=== PATIENT | male | born 1950 | race American Indian/Alaskan Native ===

== ENCOUNTER 2018-08-26 10:11 | Inpatient (IN) | payer MEDICARE ==
[2018-08-26] MEDS ORDERED: DUONEB *Not for PRN Use IH ONE ×2 (11:17→11:19)
[2018-08-26 11:19] LABS: Basophils % (Auto) 0.4 % (0.0-1.8); Eosinophils # (Auto) 0.5 K/mm3 (0.0-0.4); Eosinophils % (Auto) 7.8 % (0.0-4.3); Hematocrit 46.8 % (35.5-45.6); Hemoglobin 15.5 gm/dl (11.8-15.2); Lymphocytes # (Auto) 1.1 K/mm3 (1.2-5.4); Lymphocytes % (Auto) 16.6 % (13.4-35.0); Mean Corpuscular HGB Conc 33 % (32-34); Mean Corpuscular Volume 96 fl (84-94); Monocytes # (Auto) 0.6 K/mm3 (0.0-0.8); Monocytes % (Auto) 9.6 % (0.0-7.3); Platelet Count 161 K/mm3 (140-440); Red Blood Count 4.88 M/mm3 (3.65-5.03); Red Cell Distribution Width 13.8 % (13.2-15.2)
[2018-08-26 11:26] LABS: INR 0.97 (0.87-1.13); Partial Thromboplastin Time 26.4 Sec. (24.2-36.6)
[2018-08-26 11:28] LABS: BUN/Creatinine Ratio 22; Blood Urea Nitrogen 13 mg/dL (9-20); Calcium 8.9 mg/dL (8.4-10.2); Hemolysis Index 12
--- NOTE | 2018-08-26 11:28 | XRay Report ---
FINAL REPORT EXAM: XR CHEST 1V AP HISTORY: Dyspnea COMPARISON: Chest radiograph performed on 08/06/2018 TECHNIQUE: Single frontal view of the chest FINDINGS: The cardiomediastinal silhouette is normal in appearance. The lungs are clear without focal consolidation. There is no pleural effusion or pneumothorax. There is no acute soft tissue or osseous abnormality. IMPRESSION: No acute cardiopulmonary disease.
[2018-08-26 11:30] LABS: Creatine Kinase MB 2.4 ng/mL (0.0-4.0)
[2018-08-26 11:33] LABS: Alanine Aminotransferase 22 units/L (7-56); Albumin 4.1 g/dL (3.9-5)
[2018-08-26 11:46] LABS: Bilirubin,Direct < 0.2 mg/dL (0-0.2)
--- NOTE | 2018-08-26 12:03 | Emergency Department Report ---
ED Shortness of Breath HPI - General Chief Complaint: Dyspnea/Respdistress Stated Complaint: HARD TO BREATHE Time Seen by Provider: 08/26/18 10:41 Source: patient Mode of arrival: Ambulatory Limitations: No Limitations - History of Present Illness Initial Comments: 68-year-old man who has had difficulty in breathing he states since June. Apparently per the previous record: 68-year-old male with a history of smoking and recent diagnosis of COPD presents to the hospital of complaints of wheezing and shortness of breath since last night. Patient used his inhaler with some relief but came in due to persistent wheezing and shortness of breath. Dyspnea on exertion reported. Patient has a dry cough without fever, pain, leg swelling, or calf tenderness. 3 weeks ago patient was admitted to [facility] for shortness of breath. He was diag nosed with COPD and discharged on steroids, antibiotics, and prednisone. Patient is waiting for his insurance to be activated with [employer] on August 08 to follow up with a PMD. No home oxygen use. Patient quit smoking after his discharge from the hospital 3 weeks ago. This is the patient's third visit here. He states that he does not know what's wrong with him to me. He states he does not understand why his problems or recurrent. He tells me that after he takes what appears to be a steroid Dosepak his symptoms tend to recur. He does not complain of cough. He does not complain of leg swelling or PND. He has no chest pain, fever or chills. He would appear to be in denial regarding the diagnosis of COPD now. He states he has been "referred to 3 physicians" including a community health coordinator to try to determine what is wrong with him. He is still smoking. He did not quantify exactly how much but he states that it is more of a weekly basis now. His pulse oximetry was found to be 90% in triage. He states that he does have dyspnea on exertion but also at rest. He does admit that he has been previously prescribed an inhaler but first in June. His symptoms recurred last night. Complaint: shortness of breath -: month(s) Known History Of: COPD Associated Symptoms: denies other symptoms - Related Data Previous Rx's Medication Instructions Recorded Last Taken Type ALBUTEROL Inhaler (OR & NICU) 2 puff IH QID PRN #1 inhalation 08/07/18 Unknown Rx [ProAir HFA Inhaler] Prednisone [predniSONE 10 mg 10 mg PO .TAPER #1 tab.ds.pk 08/07/18 Unknown Rx (6-Day Pack, 21 Tabs)] Allergies Allergy/AdvReac Type Severity Reaction Status Date / Time No Known Allergies Allergy Verified 06/16/18 02:13 ED Review of Systems ROS: Stated complaint: HARD TO BREATHE Other details as noted in HPI Constitutional: denies: chills, fever Eyes: denies: eye pain, eye discharge, vision change ENT: denies: ear pain, throat pain Respiratory: shortness of breath, SOB with exertion, SOB at rest. denies: cough, wheezing Cardiovascular: denies: chest pain, palpitations Endocrine: no symptoms reported Gastrointestinal: denies: abdominal pain, nausea, diarrhea Genitourinary: denies: urgency, dysuria Musculoskeletal: denies: back pain, joint swelling, arthralgia Skin: denies: rash, lesions Neurological: denies: headache, weakness, paresthesias Psychiatric: denies: anxiety, depression Hematological/Lymphatic: denies: easy bleeding, easy bruising ED Past Medical Hx - Past Medical History Previous Medical History?: No - Surgical History Past Surgical History?: No - Social History Smoking Status: Current Every Day Smoker Substance Use Type: None - Medications Home Medications: Home Medications Medication Instructions Recorded Confirmed Last Taken Type ALBUTEROL Inhaler (OR & NICU) 2 puff IH QID PRN #1 inhalation 08/07/18 Unknown Rx [ProAir HFA Inhaler] Prednisone [predniSONE 10 mg 10 mg PO .TAPER #1 tab.ds.pk 08/07/18 Unknown Rx (6-Day Pack, 21 Tabs)] ED Physical Exam - General Limitations: No Limitations General appearance: alert, in no apparent distress - Head Head exam: Present: atraumatic, normocephalic - Eye Eye exam: Present: normal appearance. Absent: scleral icterus - ENT ENT exam: Present: mucous membranes moist - Neck Neck exam: Present: normal inspection - Respiratory Respiratory exam: Present: decreased breath sounds. Absent: normal lung sounds bilaterally, respiratory distress, accessory muscle use - Cardiovascular Cardiovascular Exam: Present: regular rate, normal rhythm. Absent: systolic murmur, diastolic murmur, rubs, gallop - GI/Abdominal GI/Abdominal exam: Present: soft, normal bowel sounds. Absent: distended, tenderness, guarding, rebound, rigid - Rectal Rectal exam: Present: deferred - Extremities Exam Extremities exam: Present: normal inspection - Back Exam Back exam: Present: normal inspection - Neurological Exam Neurological exam: Present: alert, oriented X3, CN II-XII intact. Absent: motor sensory deficit - Psychiatric Psychiatric exam: Present: normal affect, normal mood - Skin Skin exam: Present: warm, dry, intact, normal color. Absent: rash ED Course Vital Signs 08/26/18 08/26/18 08/26/18 10:21 10:52 11:28 Temperature 98.3 F Pulse Rate 95 H 97 H Pulse Rate [ 72 Anterior Bilateral Throughout] Respiratory 22 Rate Respiratory 20 Rate [Anterior Bilateral Throughout] Blood Pressure 167/76 Blood Pressure 141/95 [Right] O2 Sat by Pulse 90 95 Oximetry 08/26/18 11:43 Temperature Pulse Rate Pulse Rate [ 72 Anterior Bilateral Throughout] Respiratory Rate Respiratory 20 Rate [Anterior Bilateral Throughout] Blood Pressure Blood Pressure [Right] O2 Sat by Pulse Oximetry - Reevaluation(s) Reevaluation #1: I am concerned that the patient is mildly acidotic with an elevated PCO2. This is consistent with acute hypercapnic respiratory failure. I suspect he probably has some chronic retention as well. He will be admitted to Dr. Hahn's service for further evaluation. I suspect he needs CPap at night. He would benefit fro m further evaluation/pulmonary consultation. Further care per Dr. Hahn. 08/26/18 13:18 08/26/18 13:21 ED Medical Decision Making - Lab Data Result diagrams: 08/26/18 10:46 08/26/18 10:46 Laboratory Results - last 24 hr 08/26/18 08/26/18 08/26/18 10:46 10:46 10:46 WBC 6.5 RBC 4.88 Hgb 15.5 H Hct 46.8 H MCV 96 H MCH 32 MCHC 33 RDW 13.8 Plt Count 161 Lymph % (Auto) 16.6 [place] % (Auto) 9.6 H Eos % (Auto) 7.8 H Baso % (Auto) 0.4 Lymph # 1.1 L [place] # 0.6 Eos # 0.5 H Baso # 0.0 Seg Neutrophils % 65.6 Seg Neutrophils # 4.3 PT 13.3 INR 0.97 APTT 26.4 D-Dimer 225.35 POC ABG pH POC ABG pCO2 POC ABG pO2 POC ABG HCO3 POC ABG Total CO2 POC ABG O2 Sat POC ABG Base Excess FiO2 Sodium Potassium Chloride Carbon Dioxide Anion Gap BUN Creatinine Estimated GFR BUN/Creatinine Ratio Glucose Lactic Acid Calcium Magnesium Total Bilirubin 0.50 Direct Bilirubin < 0.2 Indirect Bilirubin 0.3 AST 15 ALT 22 Alkaline Phosphatase 102 CK-MB (CK-2) 2.4 Troponin T < 0.010 NT-Pro-B Natriuret Pep 50.06 Total Protein 6.9 Albumin 4.1 Albumin/Globulin Ratio 1.5 08/26/18 08/26/18 08/26/18 10:46 10:46 11:31 WBC RBC Hgb Hct MCV MCH MCHC RDW Plt Count Lymph % (Auto) [place] % (Auto) Eos % (Auto) Baso % (Auto) Lymph # [place] # Eos # Baso # Seg Neutrophils % Seg Neutrophils # PT INR APTT D-Dimer POC ABG pH 7.356 POC ABG pCO2 51.1 H POC ABG pO2 68 L POC ABG HCO3 28.6 POC ABG Total CO2 30 POC ABG O2 Sat 92 POC ABG Base Excess 3 FiO2 21 Sodium 139 Potassium 4.7 Chloride 101.0 Carbon Dioxide 27 Anion Gap 16 BUN 13 Creatinine 0.6 L Estimated GFR > 60 BUN/Creatinine Ratio 22 Glucose 131 H Lactic Acid 1.10 Calcium 8.9 Magnesium 1.80 Total Bilirubin Direct Bilirubin Indirect Bilirubin AST ALT Alkaline Phosphatase CK-MB (CK-2) Troponin T NT-Pro-B Natriuret Pep Total Protein Albumin Albumin/Globulin Ratio - EKG Data -: EKG Interpreted by Id EKG shows normal: sinus rhythm Rate: normal - EKG Data Interpretation: no acute changes, nonspecific ST-T wave genesis, other (QS in V2 nondiagnostic. P pulmonale. No acute changes.) - Radiology Data Radiology results: report reviewed Chest x-ray no acute process. Critical care attestation.: If time is entered above; I have spent that time in minutes in the direct care of this critically ill patient, excluding procedure time. ED Disposition Clinical Impression: Acute hypercapnic respiratory failure, COPD with exacerbation Disposition: OP ADMIT IP TO THIS HOSP Is pt being admited?: Yes Does the pt Need Aspirin: Yes Condition: Stable Instructions: Chronic Obstructive Pulmonary Disease (ED) Referrals: PRIMARY CAREMD [Primary Care Provider] - 3-5 Days Time of Disposition: 13:23
[2018-08-26] MEDS ORDERED: SOLU-Medrol IV ONE (13:04)
[2018-08-26] MEDS ORDERED: ASPIRIN PO ONE (13:24)
--- NOTE | 2018-08-26 22:02 | History and Physical Report ---
History of Present Illness Date of examination: 08/26/18 Date of admission: 08/26/18 13:24 Chief complaint: Increasing shortness of breath for 2 days History of present illness: 58-year-old -[place] male with history of COPD comes in for shortness of breath of 2 days' duration. Cough productive of mucoid sputum. Patient was recently admitted to [facility] 3 weeks ago for COPD exacerbation. No fever or chills. No chest pain. Patient continues to smoke. Patient also has dyspnea on exertion. Patient's oxygen saturations were low in the triage area. No leg swelling Past Medical History COPD Surgical History Past Surgical History?: No Social History Smoking Status: Current Every Day Smoker Substance Use Type: None Family History Htn Medications Home Medications: Home Medications Medication Instructions Recorded Confirmed Last Taken Type ALBUTEROL Inhaler (OR & NICU) 2 puff IH QID PRN #1 inhalation 08/07/18 Unknown Rx [ProAir HFA Inhaler] Prednisone [predniSONE 10 mg 10 mg PO .TAPER #1 tab.ds.pk 08/07/18 Unknown Rx (6-Day Pack, 21 Tabs)] Review of Systems ROS: Stated complaint: HARD TO BREATHE Other details as noted in HPI Constitutional: denies: chills, fever Eyes: denies: eye pain, eye discharge, vision change ENT: denies: ear pain, throat pain Respiratory: shortness of breath, SOB with exertion, SOB at rest. denies: cough, wheezing Cardiovascular: denies: chest pain, palpitations Endocrine: no symptoms reported Gastrointestinal: denies: abdominal pain, nausea, diarrhea Genitourinary: denies: urgency, dysuria Musculoskeletal: denies: back pain, joint swelling, arthralgia Skin: denies: rash, lesions Neurological: denies: headache, weakness, paresthesias Psychiatric: denies: anxiety, depression Hematological/Lymphatic: denies: easy bleeding, easy bruising Medications and Allergies Allergies Allergy/AdvReac Type Severity Reaction Status Date / Time No Known Allergies Allergy Verified 06/16/18 02:13 Home Medications Medication Instructions Recorded Confirmed Last Taken Type ALBUTEROL Inhaler (OR & NICU) 2 puff IH QID PRN #1 inhalation 08/07/18 08/26/18 08/26/18 Rx [ProAir HFA Inhaler] Prednisone [predniSONE 10 mg 10 mg PO .TAPER #1 tab.ds.pk 08/07/18 08/26/18 08/12/18 Rx (6-Day Pack, 21 Tabs)] Exam - Constitutional Vitals: Temp Pulse Resp BP Pulse Ox 97.9 F 71 20 140/76 95 08/26/18 19:35 08/26/18 19:35 08/26/18 19:35 08/26/18 19:35 08/26/18 19:35 General appearance: Present: no acute distress, well-nourished - EENT Eyes: Present: PERRL ENT: hearing intact, clear oral mucosa - Neck Neck: Present: supple, normal ROM - Respiratory Respiratory effort: normal Respiratory: bilateral: diminished, rhonchi, wheezing - Cardiovascular Heart rate: 78 Rhythm: regular Heart Sounds: Present: S1 & S2. Absent: rub, click - Extremities Extremities: no ischemia, pulses intact, pulses symmetrical, No edema Peripheral Pulses: within normal limits - Abdominal General gastrointestinal: Present: soft, non-tender, non-distended, normal bowel sounds Male genitourinary: Present: normal - Integumentary Integumentary: Present: clear, warm, dry - Musculoskeletal Musculoskeletal: gait normal, strength equal bilaterally - Psychiatric Psychiatric: appropriate mood/affect, intact judgment & insight - Neurologic Neurologic: CNII-XII intact, moves all extremities - Allied Health Allied health notes reviewed: nursing, case management Results - Labs CBC & Chem 7: 08/26/18 10:46 08/26/18 10:46 Labs: Laboratory Last Values WBC 6.5 K/mm3 (4.5-11.0) 08/26/18 10:46 RBC 4.88 M/mm3 (3.65-5.03) 08/26/18 10:46 Hgb 15.5 gm/dl (11.8-15.2) H 08/26/18 10:46 Hct 46.8 % (35.5-45.6) H 08/26/18 10:46 MCV 96 fl (84-94) H 08/26/18 10:46 MCH 32 pg (28-32) 08/26/18 10:46 MCHC 33 % (32-34) 08/26/18 10:46 RDW 13.8 % (13.2-15.2) 08/26/18 10:46 Plt Count 161 K/mm3 (140-440) 08/26/18 10:46 Lymph % (Auto) 16.6 % (13.4-35.0) 08/26/18 10:46 [place] % (Auto) 9.6 % (0.0-7.3) H 08/26/18 10:46 Eos % (Auto) 7.8 % (0.0-4.3) H 08/26/18 10:46 Baso % (Auto) 0.4 % (0.0-1.8) 08/26/18 10:46 Lymph # 1.1 K/mm3 (1.2-5.4) L 08/26/18 10:46 [place] # 0.6 K/mm3 (0.0-0.8) 08/26/18 10:46 Eos # 0.5 K/mm3 (0.0-0.4) H 08/26/18 10:46 Baso # 0.0 K/mm3 (0.0-0.1) 08/26/18 10:46 Seg Neutrophils % 65.6 % (40.0-70.0) 08/26/18 10:46 Seg Neutrophils # 4.3 K/mm3 (1.8-7.7) 08/26/18 10:46 PT 13.3 Sec. (12.2-14.9) 08/26/18 10:46 INR 0.97 (0.87-1.13) 08/26/18 10:46 APTT 26.4 Sec. (24.2-36.6) 08/26/18 10:46 D-Dimer 225.35 ng/mlDDU (0-234) 08/26/18 10:46 POC ABG pH 7.356 (7.35-7.45) 08/26/18 11:31 POC ABG pCO2 51.1 (35-45) H 08/26/18 11:31 POC ABG pO2 68 (80-105) L 08/26/18 11:31 POC ABG HCO3 28.6 08/26/18 11:31 POC ABG Total CO2 30 08/26/18 11:31 POC ABG O2 Sat 92 08/26/18 11:31 POC ABG Base Excess 3 08/26/18 11:31 FiO2 21 % 08/26/18 11:31 Sodium 139 mmol/L (137-145) 08/26/18 10:46 Potassium 4.7 mmol/L (3.6-5.0) 08/26/18 10:46 Chloride 101.0 mmol/L (98-107) 08/26/18 10:46 Carbon Dioxide 27 mmol/L (22-30) 08/26/18 10:46 Anion Gap 16 mmol/L 08/26/18 10:46 BUN 13 mg/dL (9-20) 08/26/18 10:46 Creatinine 0.6 mg/dL (0.8-1.5) L 08/26/18 10:46 Estimated GFR > 60 ml/min 08/26/18 10:46 BUN/Creatinine Ratio 22 % 08/26/18 10:46 Glucose 131 mg/dL (75-100) H 08/26/18 10:46 Lactic Acid 1.10 mmol/L (0.7-2.0) 08/26/18 10:46 Calcium 8.9 mg/dL (8.4-10.2) 08/26/18 10:46 Magnesium 1.80 mg/dL (1.7-2.3) 08/26/18 10:46 Total Bilirubin 0.50 mg/dL (0.1-1.2) 08/26/18 10:46 Direct Bilirubin < 0.2 mg/dL (0-0.2) 08/26/18 10:46 Indirect Bilirubin 0.3 mg/dL 08/26/18 10:46 AST 15 units/L (5-40) 08/26/18 10:46 ALT 22 units/L (7-56) 08/26/18 10:46 Alkaline Phosphatase 102 units/L (35-129) 08/26/18 10:46 Total Creatine Kinase 101 units/L (55-170) 08/26/18 10:46 CK-MB (CK-2) 2.4 ng/mL (0.0-4.0) 08/26/18 10:46 CK-MB (CK-2) Rel Index 2.3 (0-4) 08/26/18 10:46 Troponin T < 0.010 ng/mL (0.00-0.029) 08/26/18 10:46 NT-Pro-B Natriuret Pep 50.06 pg/mL (0-900) 08/26/18 10:46 Total Protein 6.9 g/dL (6.3-8.2) 08/26/18 10:46 Albumin 4.1 g/dL (3.9-5) 08/26/18 10:46 Albumin/Globulin Ratio 1.5 % 08/26/18 10:46 - Imaging and Cardiology Imaging and Cardiology: CXR] IMPRESSION: No acute cardiopulmonary disease. Assessment and Plan Advance Directives: Yes (full code) VTE prophylaxis?: Chemical Plan of care discussed with patient/family: Yes - Patient Problems (1) Acute hypercapnic respiratory failure Current Visit: Yes Status: Acute Plan to address problem: Patient initiated on IV Levaquin and IV Solu-Medrol and duo nebs ABG--PCO2 is 51 and PO2 is 68 consistent with hypercapnic respiratory failure (2) COPD with exacerbation Current Visit: Yes Status: Acute Plan to address problem: Patient initiated on IV Solu-Medrol and duo nebs and IV Solu-Medrol (3) Nicotine dependence Current Visit: Yes Status: Chronic Qualifiers: Nicotine product type: cigarettes Plan to address problem: Patient initiated on NicoDerm patch (4) DVT prophylaxis Current Visit: Yes Status: Acute Plan to address problem: On Lovenox and GI prophylaxis
[2018-08-26] MEDS ORDERED: ZOFRAN IV PRN (22:31)
[2018-08-26] MEDS ORDERED: TYLENOL PO PRN (22:31)
[2018-08-26] MEDS ORDERED: PERCOCET 5/325 PO PRN (22:32)
[2018-08-26] MEDS ORDERED: DILAUDID IV PRN (22:32)
[2018-08-26] MEDS ORDERED: AMBIEN PO PRN (23:00)
[2018-08-26] MEDS ORDERED: NACL 0.9% 1000 ML 1,000 ML IV SCH (23:00)
[2018-08-26] MEDS: SOLU-Medrol IV SCH (23:35)
[2018-08-26] MEDS: SODIUM CHLORIDE FLUSH SYRINGE 10 ML IV PRN (23:37)
[2018-08-27] MEDS: DUONEB *Not for PRN Use IH SCH ×4 (04:09→20:10)
[2018-08-27] MEDS ORDERED: PROVENTIL IH PRN (04:14)
[2018-08-27] MEDS: SOLU-Medrol IV SCH ×3 (05:25→21:46)
[2018-08-27] MEDS: SODIUM CHLORIDE FLUSH SYRINGE 10 ML IV PRN (05:29)
[2018-08-27 06:48] LABS: Hematocrit 44.9 % (35.5-45.6); Hemoglobin 14.8 gm/dl (11.8-15.2); Mean Corpuscular HGB Conc 33 % (32-34); Mean Corpuscular Volume 95 fl (84-94); Platelet Count 146 K/mm3 (140-440); Red Blood Count 4.71 M/mm3 (3.65-5.03); Red Cell Distribution Width 13.8 % (13.2-15.2)
[2018-08-27 07:12] LABS: Alanine Aminotransferase 20 units/L (7-56); Albumin 4.1 g/dL (3.9-5); BUN/Creatinine Ratio 30; Blood Urea Nitrogen 15 mg/dL (9-20); Calcium 9.1 mg/dL (8.4-10.2); Hemolysis Index 8
[2018-08-27] MEDS ORDERED: LEVAQUIN 750MG/150ML 750 MG/150 ML BAG IV SCH (10:00)
[2018-08-27 11:32] LABS: Anisocytosis 1+; Basophils % (Manual) 0 % (0.0-1.8); Eosinophils % (Manual) 0 % (0.0-4.3); Total Cells Counted 100
[2018-08-27 11:33] LABS: Platelet Estimate Consistent w Auto
[2018-08-27] MEDS: HABITROL TD SCH (12:00)
[2018-08-27] MEDS: PEPCID PO SCH ×2 (12:00→21:47)
[2018-08-27] MEDS: SODIUM CHLORIDE FLUSH SYRINGE 10 ML IV SCH ×2 (12:05→21:47)
--- NOTE | 2018-08-27 14:21 | Consultation ---
History of Present Illness Consult date: 08/27/18 Requesting physician: CHET BORJA Reason for consult: COPD History of present illness: 68-year-old man who has had difficulty in breathing he states since June. This is the patient's third visit here. He states that he does not know what's wrong with him to me. He states he does not understand why his problems or recurrent. He tells me that after he takes what appears to be a steroid Dose jhonny his symptoms tend to recur. He does not complain of cough. He does not complain of leg swelling or PND. He has no chest pain, fever or chills. He would appear to be in denial regarding the diagnosis of COPD now. He states he has been "referred to 3 physicians" including a envelope machine adjuster to try to determine what is wrong with him. He is still smoking. He did not quantify exactly how much but he states that it is more of a weekly basis now. His pulse oximetry was found to be 90% in triage. He states that he does have dyspnea on exertion but also at rest. His symptoms recurred last night. No home oxygen use. I was consulted to see patient for acute hypoxemic respiratory failure and AE- COPD Patient was seen and examined. Vitals, labs, medications, chart and imaging reviewed. States that he continues to smoke, 1/2 PPD. States he feels better with his breathing Review of Systems Stated complaint: HARD TO BREATHE Other details as noted in HPI Constitutional: denies: chills, fever Eyes: denies: eye pain, eye discharge, vision change ENT: denies: ear pain, throat pain Respiratory: shortness of breath, SOB with exertion, SOB at rest. denies: cough, wheezing Cardiovascular: denies: chest pain, palpitations Endocrine: no symptoms reported Gastrointestinal: denies: abdominal pain, nausea, diarrhea Genitourinary: denies: urgency, dysuria Musculoskeletal: denies: back pain, joint swelling, arthralgia Skin: denies: rash, lesions Neurological: denies: headache, weakness, paresthesias Psychiatric: denies: anxiety, depression Hematological/Lymphatic: denies: easy bleeding, easy bruising Past Medical History COPD Surgical History Past Surgical History?: No Social History Smoking Status: Current Every Day Smoker Substance Use Type: None Family History HTN Medications and Allergies Allergies Allergy/AdvReac Type Severity Reaction Status Date / Time No Known Allergies Allergy Verified 06/16/18 02:13 Home Medications Medication Instructions Recorded Confirmed Last Taken Type ALBUTEROL Inhaler (OR & NICU) 2 puff IH QID PRN #1 inhalation 08/07/18 08/26/18 08/26/18 Rx [ProAir HFA Inhaler] Prednisone [predniSONE 10 mg 10 mg PO .TAPER #1 tab.ds.pk 08/07/18 08/26/18 08/12/18 Rx (6-Day Pack, 21 Tabs)] Active Meds: Active Medications Acetaminophen (Tylenol) 650 mg PO Q4H PRN PRN Reason: Pain MILD(1-3)/Fever >100.5/MONTE Albuterol (Proventil) 2.5 mg IH Q4HRT PRN PRN Reason: Shortness Of Breath Albuterol/Ipratropium (Duoneb *Not For Prn Use*) 1 ampul IH QIDRT [facility] Last Admin: 08/27/18 11:35 Dose: 1 ampul Documented by: Famotidine (Pepcid) 20 mg PO BID [facility] Last Admin: 08/27/18 12:00 Dose: 20 mg Documented by: Hydromorphone HCl (Dilaudid) 0.5 mg IV Q3H PRN PRN Reason: Pain , Severe (7-10) Levofloxacin/Dextrose (Levaquin 750mg/150ml) 750 mg in 150 mls @ 100 mls/hr IV Q24HR [facility]; Protocol Last Admin: 08/27/18 13:27 Dose: 100 mls/hr Documented by: Methylprednisolone Sodium Succinate (Solu-Medrol) 60 mg IV Q8HR [facility] Last Admin: 08/27/18 13:31 Dose: 60 mg Documented by: Nicotine (Habitrol) 14 mg TD QDAY [facility] Last Admin: 08/27/18 12:00 Dose: 14 mg Documented by: Ondansetron HCl (Zofran) 4 mg IV Q8H PRN PRN Reason: Nausea And Vomiting Oxycodone/Acetaminophen (Percocet 5/325) 1 tab PO Q6H PRN PRN Reason: Pain, Moderate (4-6) Sodium Chloride (Sodium Chloride Flush Syringe 10 Ml) 10 ml IV BID [facility] Last Admin: 08/27/18 12:05 Dose: 10 ml Documented by: Sodium Chloride (Sodium Chloride Flush Syringe 10 Ml) 10 ml IV PRN PRN PRN Reason: LINE FLUSH Last Admin: 08/27/18 05:29 Dose: 10 ml Documented by: Zolpidem Tartrate (Ambien) 5 mg PO QHS PRN PRN Reason: Insomnia Physical Examination Vital signs: Vital Signs Temp Pulse Resp BP Pulse Ox 98.3 F 95 H 22 167/76 90 08/26/18 10:21 08/26/18 10:21 08/26/18 10:21 08/26/18 10:21 08/26/18 10:21 - General Limitations: No Limitations General appearance: alert, in no apparent distress - Head Head exam: Present: atraumatic, normocephalic - Eye Eye exam: Present: normal appearance. Absent: scleral icterus - ENT ENT exam: Present: mucous membranes moist - Neck Neck exam: Present: normal inspection - Respiratory Respiratory exam: Present: decreased breath sounds. Absent: normal lung sounds bilaterally, respiratory distress, accessory muscle use - Cardiovascular Cardiovascular Exam: Present: regular rate, normal rhythm. Absent: systolic murmur, diastolic murmur, rubs, gallop - GI/Abdominal GI/Abdominal exam: Present: soft, normal bowel sounds. Absent: distended, tenderness, guarding, rebound, rigid - Rectal Rectal exam: Present: deferred - Extremities Exam Extremities exam: Present: normal inspection - Back Exam Back exam: Present: normal inspection - Neurological Exam Neurological exam: Present: alert, oriented X3, CN II-XII intact. Absent: motor sensory deficit - Psychiatric Psychiatric exam: Present: normal affect, normal mood - Skin Skin exam: Present: warm, dry, intact, normal color. Absent: rash Results - Laboratory Findings CBC and BMP: 08/27/18 06:20 08/27/18 06:20 ABG POC ABG pH 7.356 (7.35-7.45) 08/26/18 11:31 POC ABG pCO2 51.1 (35-45) H 08/26/18 11:31 POC ABG pO2 68 (80-105) L 08/26/18 11:31 POC ABG HCO3 28.6 08/26/18 11:31 POC ABG Total CO2 30 08/26/18 11:31 POC ABG O2 Sat 92 08/26/18 11:31 PT/INR, D-dimer PT 13.3 Sec. (12.2-14.9) 08/26/18 10:46 INR 0.97 (0.87-1.13) 08/26/18 10:46 D-Dimer 225.35 ng/mlDDU (0-234) 08/26/18 10:46 Abnormal lab findings: Abnormal Labs 08/26/18 08/26/18 08/26/18 10:46 10:46 11:31 Hgb 15.5 H Hct 46.8 H MCV 96 H [place] % (Auto) 9.6 H Eos % (Auto) 7.8 H Lymph # 1.1 L Eos # 0.5 H Seg Neuts % (Manual) Lymphocytes % (Manual) Lymphocytes # (Manual) POC ABG pCO2 51.1 H POC ABG pO2 68 L Sodium Chloride Creatinine 0.6 L Glucose 131 H 08/27/18 08/27/18 06:20 06:20 Hgb Hct MCV 95 H [place] % (Auto) Eos % (Auto) Lymph # Eos # Seg Neuts % (Manual) 94.0 H Lymphocytes % (Manual) 5.0 L Lymphocytes # (Manual) 0.4 L POC ABG pCO2 POC ABG pO2 Sodium 136 L Chloride 97.2 L Creatinine 0.5 L Glucose 179 H - Diagnostic Findings Chest x-ray: image reviewed (No acute pulmoanry infiltrate) Assessment and Plan -Acute combined respiratory failure -AE COPD -Tobacco abuse disorder with nicotine dependence -Mild Hyperglycemia due to steroids with hyponatremia -Bronchodilators -VTE prophylaxis -Supplemental oxygen to keep O2 sats 88-90% -Steroids with taper -Short course antibiotics, stop levofloxacin and use azithromycin for 5 days. -smoking cessation counselling done at the bedside for over 5 minutes. He is willing to quit and wants help -Nicotine withdrawal precautions, Nicotine patch -Accucheck with glycemic control, goal 140-180mg/dL -Blood pressure control -Will need LABA/LAMA on discharge and with slow steroid taper. -Needs PFTS and pulmonary follow up on discharge. Anticipate he can be discharged within the next 48 to 72 hours. Discussed care plan with him and his ex- who was at the bedside Answered all their questions.
--- NOTE | 2018-08-27 14:37 | Progress Note ---
Assessment and Plan Assessment and plan: Patient is 68-year-old Black man with a history of COPD and tobacco dependency who presented with SOB. Patient was recently admitted to [facility] for COPD exacerbation. He does not have a nebulizer machine at home and his home inhaler provided no relief. ABG showed early hypoxemia and hypercapnea. -Acute combined respiratory failure: consult Pulmonology, treat the COPD -AE COPD: treat with iv steroid, abx, nebs, patient will need home nebulizer at discharge. -Tobacco dependency: chief counsel on cessation -Mild Hyperglycemia due to steroids with hyponatremia: monitor bp closely -DVT prophylaxis: reviewed History Interval history: Patient was seen and examined. Follow-up on current diagnosis of SOB. Overnight uneventful. Patient denies any chest pain, nausea/vomiting or severe headaches. Imaging, nursing note, chart, labs and old chart reviewed. Discussed with patient. Hospitalist Physical - Physical exam Narrative exam: Gen: WDWN, NAD, Awake, Alert, Orientated HEENT: NCAT, EOMI, PERRL, OP Clear Neck: supple, no adenopathy, no thyromegaly, no JVD CVS/Heart: RRR, normal S1S2, pulses present bilaterally Chest/Lungs: diminished bs with expiratory wheezing, Symmetrical chest expansion, good air entry bilaterally GI/Abdomen: soft, NTND, good bowel sounds, no guarding or rebound /Bladder: no suprapubic tenderness, no CVA or paraspinal tenderness Extermity/Skin: no c/c/e, no obvious rash MSK: FROM x 4 Neuro: CN 2-12 grossly intact, no new focal deficits Psych: calm - Constitutional Vitals: Temp Pulse Resp BP Pulse Ox 97.8 F 72 18 115/64 98 08/27/18 07:22 08/27/18 11:45 08/27/18 11:45 08/27/18 07:22 08/27/18 11:44 General appearance: Present: no acute distress, well-nourished Results - Labs CBC & Chem 7: 08/27/18 06:20 08/27/18 06:20 Labs: Laboratory Last Values WBC 7.1 K/mm3 (4.5-11.0) 08/27/18 06:20 RBC 4.71 M/mm3 (3.65-5.03) 08/27/18 06:20 Hgb 14.8 gm/dl (11.8-15.2) 08/27/18 06:20 Hct 44.9 % (35.5-45.6) 08/27/18 06:20 MCV 95 fl (84-94) H 08/27/18 06:20 MCH 31 pg (28-32) 08/27/18 06:20 MCHC 33 % (32-34) 08/27/18 06:20 RDW 13.8 % (13.2-15.2) 08/27/18 06:20 Plt Count 146 K/mm3 (140-440) 08/27/18 06:20 Lymph % (Auto) 16.6 % (13.4-35.0) 08/26/18 10:46 [place] % (Auto) 9.6 % (0.0-7.3) H 08/26/18 10:46 Eos % (Auto) 7.8 % (0.0-4.3) H 08/26/18 10:46 Baso % (Auto) 0.4 % (0.0-1.8) 08/26/18 10:46 Lymph # 1.1 K/mm3 (1.2-5.4) L 08/26/18 10:46 [place] # 0.6 K/mm3 (0.0-0.8) 08/26/18 10:46 Eos # 0.5 K/mm3 (0.0-0.4) H 08/26/18 10:46 Baso # 0.0 K/mm3 (0.0-0.1) 08/26/18 10:46 Add Manual Diff Complete 08/27/18 06:20 Total Counted 100 08/27/18 06:20 Seg Neutrophils % 65.6 % (40.0-70.0) 08/26/18 10:46 Seg Neuts % (Manual) 94.0 % (40.0-70.0) H 08/27/18 06:20 Band Neutrophils % 0 % 08/27/18 06:20 Lymphocytes % (Manual) 5.0 % (13.4-35.0) L 08/27/18 06:20 Reactive Lymphs % (Man) 0 % 08/27/18 06:20 Monocytes % (Manual) 1.0 % (0.0-7.3) 08/27/18 06:20 Eosinophils % (Manual) 0 % (0.0-4.3) 08/27/18 06:20 Basophils % (Manual) 0 % (0.0-1.8) 08/27/18 06:20 Metamyelocytes % 0 % 08/27/18 06:20 Myelocytes % 0 % 08/27/18 06:20 Promyelocytes % 0 % 08/27/18 06:20 Blast Cells % 0 % 08/27/18 06:20 Nucleated RBC % Not Reportable 08/27/18 06:20 Seg Neutrophils # 4.3 K/mm3 (1.8-7.7) 08/26/18 10:46 Seg Neutrophils # Man 6.7 K/mm3 (1.8-7.7) 08/27/18 06:20 Band Neutrophils # 0.0 K/mm3 08/27/18 06:20 Lymphocytes # (Manual) 0.4 K/mm3 (1.2-5.4) L 08/27/18 06:20 Abs React Lymphs (Man) 0.0 K/mm3 08/27/18 06:20 Monocytes # (Manual) 0.1 K/mm3 (0.0-0.8) 08/27/18 06:20 Eosinophils # (Manual) 0.0 K/mm3 (0.0-0.4) 08/27/18 06:20 Basophils # (Manual) 0.0 K/mm3 (0.0-0.1) 08/27/18 06:20 Metamyelocytes # 0.0 K/mm3 08/27/18 06:20 Myelocytes # 0.0 K/mm3 08/27/18 06:20 Promyelocytes # 0.0 K/mm3 08/27/18 06:20 Blast Cells # 0.0 K/mm3 08/27/18 06:20 WBC Morphology Not Reportable 08/27/18 06:20 Hypersegmented Neuts Not Reportable 08/27/18 06:20 Hyposegmented Neuts Not Reportable 08/27/18 06:20 Hypogranular Neuts Not Reportable 08/27/18 06:20 Smudge Cells Not Reportable 08/27/18 06:20 Toxic Granulation Not Reportable 08/27/18 06:20 Toxic Vacuolation Not Reportable 08/27/18 06:20 Dohle Bodies Not Reportable 08/27/18 06:20 Pelger-Huet Anomaly Not Reportable 08/27/18 06:20 Deshawn Rods Not Reportable 08/27/18 06:20 Platelet Estimate Consistent w auto 08/27/18 06:20 Clumped Platelets Not Reportable 08/27/18 06:20 Plt Clumps, EDTA Not Reportable 08/27/18 06:20 Large Platelets Not Reportable 08/27/18 06:20 Giant Platelets Not Reportable 08/27/18 06:20 Platelet Satelliting Not Reportable 08/27/18 06:20 Plt Morphology Comment Not Reportable 08/27/18 06:20 RBC Morphology Not Reportable 08/27/18 06:20 Dimorphic RBCs Not Reportable 08/27/18 06:20 Polychromasia Not Reportable 08/27/18 06:20 Hypochromasia Not Reportable 08/27/18 06:20 Poikilocytosis Not Reportable 08/27/18 06:20 Anisocytosis 1+ 08/27/18 06:20 Microcytosis Not Reportable 08/27/18 06:20 Macrocytosis Not Reportable 08/27/18 06:20 Spherocytes Not Reportable 08/27/18 06:20 Pappenheimer Bodies Not Reportable 08/27/18 06:20 Sickle Cells Not Reportable 08/27/18 06:20 Target Cells Not Reportable 08/27/18 06:20 Tear Drop Cells Not Reportable 08/27/18 06:20 Ovalocytes Not Reportable 08/27/18 06:20 Helmet Cells Not Reportable 08/27/18 06:20 Rojas-[place] Bodies Not Reportable 08/27/18 06:20 [place] Rings Not Reportable 08/27/18 06:20 Matthew Cells Not Reportable 08/27/18 06:20 Bite Cells Not Reportable 08/27/18 06:20 Crenated Cell Not Reportable 08/27/18 06:20 Elliptocytes Not Reportable 08/27/18 06:20 Acanthocytes (Spur) Not Reportable 08/27/18 06:20 Rouleaux Not Reportable 08/27/18 06:20 Hemoglobin C Crystals Not Reportable 08/27/18 06:20 Schistocytes Not Reportable 08/27/18 06:20 Malaria parasites Not Reportable 08/27/18 06:20 Carlos Bodies Not Reportable 08/27/18 06:20 Hem Pathologist Commnt No 08/27/18 06:20 PT 13.3 Sec. (12.2-14.9) 08/26/18 10:46 INR 0.97 (0.87-1.13) 08/26/18 10:46 APTT 26.4 Sec. (24.2-36.6) 08/26/18 10:46 D-Dimer 225.35 ng/mlDDU (0-234) 08/26/18 10:46 POC ABG pH 7.356 (7.35-7.45) 08/26/18 11:31 POC ABG pCO2 51.1 (35-45) H 08/26/18 11:31 POC ABG pO2 68 (80-105) L 08/26/18 11:31 POC ABG HCO3 28.6 08/26/18 11:31 POC ABG Total CO2 30 08/26/18 11:31 POC ABG O2 Sat 92 08/26/18 11:31 POC ABG Base Excess 3 08/26/18 11:31 FiO2 21 % 08/26/18 11:31 Sodium 136 mmol/L (137-145) L 08/27/18 06:20 Potassium 4.9 mmol/L (3.6-5.0) 08/27/18 06:20 Chloride 97.2 mmol/L (98-107) L 08/27/18 06:20 Carbon Dioxide 29 mmol/L (22-30) 08/27/18 06:20 Anion Gap 15 mmol/L 08/27/18 06:20 BUN 15 mg/dL (9-20) 08/27/18 06:20 Creatinine 0.5 mg/dL (0.8-1.5) L 08/27/18 06:20 Estimated GFR > 60 ml/min 08/27/18 06:20 BUN/Creatinine Ratio 30 % 08/27/18 06:20 Glucose 179 mg/dL (75-100) H 08/27/18 06:20 Lactic Acid 1.10 mmol/L (0.7-2.0) 08/26/18 10:46 Calcium 9.1 mg/dL (8.4-10.2) 08/27/18 06:20 Magnesium 1.80 mg/dL (1.7-2.3) 08/26/18 10:46 Total Bilirubin 0.50 mg/dL (0.1-1.2) 08/27/18 06:20 Direct Bilirubin < 0.2 mg/dL (0-0.2) 08/26/18 10:46 Indirect Bilirubin 0.3 mg/dL 08/26/18 10:46 AST 12 units/L (5-40) 08/27/18 06:20 ALT 20 units/L (7-56) 08/27/18 06:20 Alkaline Phosphatase 72 units/L (35-129) 08/27/18 06:20 Total Creatine Kinase 101 units/L (55-170) 08/26/18 10:46 CK-MB (CK-2) 2.4 ng/mL (0.0-4.0) 08/26/18 10:46 CK-MB (CK-2) Rel Index 2.3 (0-4) 08/26/18 10:46 Troponin T < 0.010 ng/mL (0.00-0.029) 08/26/18 10:46 NT-Pro-B Natriuret Pep 50.06 pg/mL (0-900) 08/26/18 10:46 Total Protein 6.7 g/dL (6.3-8.2) 08/27/18 06:20 Albumin 4.1 g/dL (3.9-5) 08/27/18 06:20 Albumin/Globulin Ratio 1.6 % 08/27/18 06:20
[2018-08-28] MEDS: SOLU-Medrol IV SCH ×2 (06:16→13:35)
[2018-08-28] MEDS: DUONEB *Not for PRN Use IH SCH ×2 (08:55→13:15)
[2018-08-28] MEDS: PEPCID PO SCH (10:08)
[2018-08-28] MEDS: HABITROL TD SCH (10:09)
[2018-08-28] MEDS: SODIUM CHLORIDE FLUSH SYRINGE 10 ML IV SCH (10:11)
--- NOTE | 2018-08-28 11:05 | Progress Note ---
Assessment and Plan Assessment and plan: Patient is 68-year-old Black man with a history of COPD and tobacco dependency who presented with SOB. Patient was recently admitted to [facility] for COPD exacerbation. He does not have a nebulizer machine at home and his home inhaler provided no relief. ABG showed early hypoxemia and hypercapnea. -Acute combined respiratory failure: consult Pulmonology, treat the COPD -AE COPD: treat with iv steroid, abx, nebs, patient will need home nebulizer at discharge. -Tobacco dependency: elder counselor on cessation -Mild Hyperglycemia due to steroids with hyponatremia: monitor bp closely -DVT prophylaxis: reviewed History Interval history: Patient was seen and examined. Follow-up on current diagnosis of SOB. Overnight uneventful. Patient denies any chest pain, nausea/vomiting or severe headaches. Imaging, nursing note, chart, labs and old chart reviewed. Discussed with patient. Hospitalist Physical - Physical exam Narrative exam: Gen: WDWN, NAD, Awake, Alert, Orientated HEENT: NCAT, EOMI, PERRL, OP Clear Neck: supple, no adenopathy, no thyromegaly, no JVD CVS/Heart: RRR, normal S1S2, pulses present bilaterally Chest/Lungs: diminished bs with expiratory wheezing, Symmetrical chest expansion, good air entry bilaterally GI/Abdomen: soft, NTND, good bowel sounds, no guarding or rebound /Bladder: no suprapubic tenderness, no CVA or paraspinal tenderness Extermity/Skin: no c/c/e, no obvious rash MSK: FROM x 4 Neuro: CN 2-12 grossly intact, no new focal deficits Psych: calm - Constitutional Vitals: Temp Pulse Resp BP Pulse Ox 97.7 F 88 16 128/65 97 08/28/18 07:54 08/28/18 09:04 08/28/18 09:04 08/28/18 07:54 08/28/18 09:05 General appearance: Present: no acute distress, well-nourished Results - Labs CBC & Chem 7: 08/27/18 06:20 08/27/18 06:20 Labs: Laboratory Last Values WBC 7.1 K/mm3 (4.5-11.0) 08/27/18 06:20 RBC 4.71 M/mm3 (3.65-5.03) 08/27/18 06:20 Hgb 14.8 gm/dl (11.8-15.2) 08/27/18 06:20 Hct 44.9 % (35.5-45.6) 08/27/18 06:20 MCV 95 fl (84-94) H 08/27/18 06:20 MCH 31 pg (28-32) 08/27/18 06:20 MCHC 33 % (32-34) 08/27/18 06:20 RDW 13.8 % (13.2-15.2) 08/27/18 06:20 Plt Count 146 K/mm3 (140-440) 08/27/18 06:20 Lymph % (Auto) 16.6 % (13.4-35.0) 08/26/18 10:46 [place] % (Auto) 9.6 % (0.0-7.3) H 08/26/18 10:46 Eos % (Auto) 7.8 % (0.0-4.3) H 08/26/18 10:46 Baso % (Auto) 0.4 % (0.0-1.8) 08/26/18 10:46 Lymph # 1.1 K/mm3 (1.2-5.4) L 08/26/18 10:46 [place] # 0.6 K/mm3 (0.0-0.8) 08/26/18 10:46 Eos # 0.5 K/mm3 (0.0-0.4) H 08/26/18 10:46 Baso # 0.0 K/mm3 (0.0-0.1) 08/26/18 10:46 Add Manual Diff Complete 08/27/18 06:20 Total Counted 100 08/27/18 06:20 Seg Neutrophils % 65.6 % (40.0-70.0) 08/26/18 10:46 Seg Neuts % (Manual) 94.0 % (40.0-70.0) H 08/27/18 06:20 Band Neutrophils % 0 % 08/27/18 06:20 Lymphocytes % (Manual) 5.0 % (13.4-35.0) L 08/27/18 06:20 Reactive Lymphs % (Man) 0 % 08/27/18 06:20 Monocytes % (Manual) 1.0 % (0.0-7.3) 08/27/18 06:20 Eosinophils % (Manual) 0 % (0.0-4.3) 08/27/18 06:20 Basophils % (Manual) 0 % (0.0-1.8) 08/27/18 06:20 Metamyelocytes % 0 % 08/27/18 06:20 Myelocytes % 0 % 08/27/18 06:20 Promyelocytes % 0 % 08/27/18 06:20 Blast Cells % 0 % 08/27/18 06:20 Nucleated RBC % Not Reportable 08/27/18 06:20 Seg Neutrophils # 4.3 K/mm3 (1.8-7.7) 08/26/18 10:46 Seg Neutrophils # Man 6.7 K/mm3 (1.8-7.7) 08/27/18 06:20 Band Neutrophils # 0.0 K/mm3 08/27/18 06:20 Lymphocytes # (Manual) 0.4 K/mm3 (1.2-5.4) L 08/27/18 06:20 Abs React Lymphs (Man) 0.0 K/mm3 08/27/18 06:20 Monocytes # (Manual) 0.1 K/mm3 (0.0-0.8) 08/27/18 06:20 Eosinophils # (Manual) 0.0 K/mm3 (0.0-0.4) 08/27/18 06:20 Basophils # (Manual) 0.0 K/mm3 (0.0-0.1) 08/27/18 06:20 Metamyelocytes # 0.0 K/mm3 08/27/18 06:20 Myelocytes # 0.0 K/mm3 08/27/18 06:20 Promyelocytes # 0.0 K/mm3 08/27/18 06:20 Blast Cells # 0.0 K/mm3 08/27/18 06:20 WBC Morphology Not Reportable 08/27/18 06:20 Hypersegmented Neuts Not Reportable 08/27/18 06:20 Hyposegmented Neuts Not Reportable 08/27/18 06:20 Hypogranular Neuts Not Reportable 08/27/18 06:20 Smudge Cells Not Reportable 08/27/18 06:20 Toxic Granulation Not Reportable 08/27/18 06:20 Toxic Vacuolation Not Reportable 08/27/18 06:20 Dohle Bodies Not Reportable 08/27/18 06:20 Pelger-Huet Anomaly Not Reportable 08/27/18 06:20 Deshawn Rods Not Reportable 08/27/18 06:20 Platelet Estimate Consistent w auto 08/27/18 06:20 Clumped Platelets Not Reportable 08/27/18 06:20 Plt Clumps, EDTA Not Reportable 08/27/18 06:20 Large Platelets Not Reportable 08/27/18 06:20 Giant Platelets Not Reportable 08/27/18 06:20 Platelet Satelliting Not Reportable 08/27/18 06:20 Plt Morphology Comment Not Reportable 08/27/18 06:20 RBC Morphology Not Reportable 08/27/18 06:20 Dimorphic RBCs Not Reportable 08/27/18 06:20 Polychromasia Not Reportable 08/27/18 06:20 Hypochromasia Not Reportable 08/27/18 06:20 Poikilocytosis Not Reportable 08/27/18 06:20 Anisocytosis 1+ 08/27/18 06:20 Microcytosis Not Reportable 08/27/18 06:20 Macrocytosis Not Reportable 08/27/18 06:20 Spherocytes Not Reportable 08/27/18 06:20 Pappenheimer Bodies Not Reportable 08/27/18 06:20 Sickle Cells Not Reportable 08/27/18 06:20 Target Cells Not Reportable 08/27/18 06:20 Tear Drop Cells Not Reportable 08/27/18 06:20 Ovalocytes Not Reportable 08/27/18 06:20 Helmet Cells Not Reportable 08/27/18 06:20 Rojas-[place] Bodies Not Reportable 08/27/18 06:20 [place] Rings Not Reportable 08/27/18 06:20 Matthew Cells Not Reportable 08/27/18 06:20 Bite Cells Not Reportable 08/27/18 06:20 Crenated Cell Not Reportable 08/27/18 06:20 Elliptocytes Not Reportable 08/27/18 06:20 Acanthocytes (Spur) Not Reportable 08/27/18 06:20 Rouleaux Not Reportable 08/27/18 06:20 Hemoglobin C Crystals Not Reportable 08/27/18 06:20 Schistocytes Not Reportable 08/27/18 06:20 Malaria parasites Not Reportable 08/27/18 06:20 Carlos Bodies Not Reportable 08/27/18 06:20 Hem Pathologist Commnt No 08/27/18 06:20 PT 13.3 Sec. (12.2-14.9) 08/26/18 10:46 INR 0.97 (0.87-1.13) 08/26/18 10:46 APTT 26.4 Sec. (24.2-36.6) 08/26/18 10:46 D-Dimer 225.35 ng/mlDDU (0-234) 08/26/18 10:46 POC ABG pH 7.356 (7.35-7.45) 08/26/18 11:31 POC ABG pCO2 51.1 (35-45) H 08/26/18 11:31 POC ABG pO2 68 (80-105) L 08/26/18 11:31 POC ABG HCO3 28.6 08/26/18 11:31 POC ABG Total CO2 30 08/26/18 11:31 POC ABG O2 Sat 92 08/26/18 11:31 POC ABG Base Excess 3 08/26/18 11:31 FiO2 21 % 08/26/18 11:31 Sodium 136 mmol/L (137-145) L 08/27/18 06:20 Potassium 4.9 mmol/L (3.6-5.0) 08/27/18 06:20 Chloride 97.2 mmol/L (98-107) L 08/27/18 06:20 Carbon Dioxide 29 mmol/L (22-30) 08/27/18 06:20 Anion Gap 15 mmol/L 08/27/18 06:20 BUN 15 mg/dL (9-20) 08/27/18 06:20 Creatinine 0.5 mg/dL (0.8-1.5) L 08/27/18 06:20 Estimated GFR > 60 ml/min 08/27/18 06:20 BUN/Creatinine Ratio 30 % 08/27/18 06:20 Glucose 179 mg/dL (75-100) H 08/27/18 06:20 Lactic Acid 1.10 mmol/L (0.7-2.0) 08/26/18 10:46 Calcium 9.1 mg/dL (8.4-10.2) 08/27/18 06:20 Magnesium 1.80 mg/dL (1.7-2.3) 08/26/18 10:46 Total Bilirubin 0.50 mg/dL (0.1-1.2) 08/27/18 06:20 Direct Bilirubin < 0.2 mg/dL (0-0.2) 08/26/18 10:46 Indirect Bilirubin 0.3 mg/dL 08/26/18 10:46 AST 12 units/L (5-40) 08/27/18 06:20 ALT 20 units/L (7-56) 08/27/18 06:20 Alkaline Phosphatase 72 units/L (35-129) 08/27/18 06:20 Total Creatine Kinase 101 units/L (55-170) 08/26/18 10:46 CK-MB (CK-2) 2.4 ng/mL (0.0-4.0) 08/26/18 10:46 CK-MB (CK-2) Rel Index 2.3 (0-4) 08/26/18 10:46 Troponin T < 0.010 ng/mL (0.00-0.029) 08/26/18 10:46 NT-Pro-B Natriuret Pep 50.06 pg/mL (0-900) 08/26/18 10:46 Total Protein 6.7 g/dL (6.3-8.2) 08/27/18 06:20 Albumin 4.1 g/dL (3.9-5) 08/27/18 06:20 Albumin/Globulin Ratio 1.6 % 08/27/18 06:20
--- NOTE | 2018-08-28 11:16 | Discharge Summary ---
Providers - Providers Date of Admission: 08/26/18 13:24 Date of discharge: 08/28/18 Attending physician: LUIS ALBERTO COLON 08/26/18 22:32 Consult to Physician [CONS] Routine Comment: Consulting Provider: ERMIAS COTO Physician Instructions: Reason For Exam: respiratory failure Primary care physician: GURPREET CORDOVA Hospitalization Condition: Stable Hospital course: Patient is 68-year-old Black man with a history of COPD and tobacco dependency who presented with SOB. Patient was recently admitted to [facility] for COPD exacerbation. He does not have a nebulizer machine at home and his home inhaler provided no relief. ABG showed early hypoxemia and hypercapnea. -Acute combined respiratory failure: consult Pulmonology, treat the COPD -AE COPD: treat with iv steroid, abx, nebs, patient will need home nebulizer at discharge. -Tobacco dependency: psychologist counseling on cessation -Mild Hyperglycemia due to steroids with hyponatremia: monitor bp closely -DVT prophylaxis: reviewed Disposition: DC-01 TO HOME OR SELFCARE Time spent for discharge: 33 minutes Core Measure Documentation - Palliative Care Palliative Care/ Comfort Measures: Not Applicable - Core Measures Any of the following diagnoses?: none - VTE Discharge Requirements Deep Vein Thrombosis/Pulmonary Embolism Present on Admission: No Has pt received <5 days of overlap therapy or INR<2.0: No Anticoagulant overlap therapy prescribed at discharge: No Contraindication No Overlap Therapy order at DC: Not Indicated Exam - Physical Exam Narrative exam: Gen: WDWN, NAD, Awake, Alert, Orientated HEENT: NCAT, EOMI, PERRL, OP Clear Neck: supple, no adenopathy, no thyromegaly, no JVD CVS/Heart: RRR, normal S1S2, pulses present bilaterally Chest/Lungs: diminished bs with expiratory wheezing, Symmetrical chest expansion, good air entry bilaterally GI/Abdomen: soft, NTND, good bowel sounds, no guarding or rebound /Bladder: no suprapubic tenderness, no CVA or paraspinal tenderness Extermity/Skin: no c/c/e, no obvious rash MSK: FROM x 4 Neuro: CN 2-12 grossly intact, no new focal deficits Psych: calm - Constitutional Vitals: Temp Pulse Resp BP Pulse Ox 97.7 F 88 16 128/65 97 08/28/18 07:54 08/28/18 09:04 08/28/18 09:04 08/28/18 07:54 08/28/18 09:05 Plan Activity: other (no strenous activity until cleared by PCP) Diet: low salt Durable Medical Equipment Needed Upon Discharge: Nebulizer Follow up with: PRIMARY CAREMD [Referring] - 3-5 Days ERMIAS COTO MD [Staff Physician] - 7 Days Prescriptions: ALBUTEROL NEB's [Proventil 0.083% NEBS] 2.5 mg IH Q4HRT PRN #30 nebu PRN Reason: Shortness Of Breath Azithromycin [Zithromax Z-JORGE ALBERTO] 1 dose PO DAILY 5 Days tab Budesonide/Formoterol Fumarate [Symbicort 160-4.5 Mcg Inhaler] 2 gm IH BID #1 hfa.aer.ad Nicotine [Habitrol] 14 mg TD QDAY #14 patch oxyCODONE /ACETAMINOPHEN [Percocet 5/325 mg] 1 tab PO Q6H PRN #15 tablet PRN Reason: Pain , Severe (7-10) predniSONE [Deltasone] 1 dose PO QDAY 18 Days tab Ipratropium/Albuterol Sulfate [DUONEB *Not for PRN Use*] 1 ampul IH TIDRT PRN #1 ampul.neb PRN Reason: Shortness Of Breath
[2018-08-28] MEDS ORDERED: PNEUMOVAX 23 IM ONE (12:00)
[2018-08-28 13:48] VITALS: BP 110/55
== END 2018-08-28 16:20 | disposition home or self-care (01) | DRG 189 ==
LOC: ED 10:11 → 2B-ACE 13:24
PROVIDERS: ADMIT Internal Medicine; ATTEND Internal Medicine
PROC: 4A033R1 Measurement of Arterial Saturation, Peripheral, Percutaneous Approach (ICD-10-PCS; principal; 2018-08-26)
PROC: 3E0234Z Introduction of Serum, Toxoid and Vaccine into Muscle, Percutaneous Approach (ICD-10-PCS; 2018-08-28)
DX: J96.01 Acute respiratory failure with hypoxia (principal); J44.1 Chronic obstructive pulmonary disease with (acute) exacerbation; E87.1 Hypo-osmolality and hyponatremia; J96.02 Acute respiratory failure with hypercapnia; R73.9 Hyperglycemia, unspecified; T38.0X5A Adverse effect of glucocorticoids and synthetic analogues, initial encounter; F17.210 Nicotine dependence, cigarettes, uncomplicated; Y92.89 Other specified places as the place of occurrence of the external cause; Z71.6 Tobacco abuse counseling; Z82.49 Family history of ischemic heart disease and other diseases of the circulatory system; Z79.899 Other long term (current) drug therapy; Z23 Encounter for immunization
CPT/HCPCS: 36415; 71045; 80048; 80053; 80076; 82140; 82550; 82553; 82803; 83735; 83880; 84484; 85007; 85025; 85379; 85610; 85730; 90732; 93005; 93010; 94640; 94760; G0378; J1956; J2930